=== PATIENT | female | born 1995 | race African-American/Black ===

== ENCOUNTER 2016-08-13 10:05 | Observation (INO) | payer MEDICAID ==
[2016-08-16] MEDS ORDERED: PREN-96 PO (12:53)
== END 2016-08-13 11:25 | disposition home or self-care (01) | DRG 566 ==
LOC: LDRP 10:05
PROVIDERS: ADMIT Specialist; ATTEND Specialist
DX: O41.03X0 Oligohydramnios, third trimester, not applicable or unspecified (principal); O48.0 Post-term pregnancy; Z3A.40 40 weeks gestation of pregnancy
CPT/HCPCS: 59025; 76818; 81002; G0378

== ENCOUNTER 2019-03-01 03:42 | Emergency (ER) | payer MEDICAID ==
[~2019-03-01] VITALS: Ht 162.6 cm; Wt 72.6 kg
[~2019-03-01 03:42] MED LIST: PREN-96 PO
[2019-03-01 05:11] LABS: Basophils # (auto) 0 uL; Eosinophils # (auto) 0 uL; Eosinophils % (auto) 0.2 % (0.0-7.0); Hemoglobin 10.6 g/dL (12.2-16.2); Lymphocytes # (auto) 0.8 uL; Neutrophils # (auto) 2.9 uL; Nucleated Red Blood Cells % 0.1 %; White Blood Cell 4.1 10^3/uL (4.4-10.8)
[2019-03-01 05:11] LABS: Urine Bacteria MANY /hpf (None Seen); Urine Blood Negative /uL (Negative); Urine Mucus FEW (None Seen); Urine Specific Gravity 1.026 (1.001-1.035); Urine WBC 44 /hpf (0 - 5)
[2019-03-01 05:13] LABS: Basophils % (auto) 0.3 % (0.0-2.0); Hematocrit 33.5 % (36.0-46.0); Mean Corpuscular Hemoglobin 23.3 pg (28.0-32.0); Mean Corpuscular Hgb Conc. 31.6 g/dL (32.0-36.0); Mean Corpuscular Volume 73.8 fL (80.0-100.0); Monocytes # (auto) 0.5 uL; Monocytes % (auto) 11.3 % (0.0-12.0); Neutrophils % (auto) 69.2 % (37.0-80.0); Platelet Count (auto) 228 10^3/uL (140-450); Red Blood Cells 4.53 10^6/uL (4.0-5.20)
[2019-03-01 05:30] LABS: Albumin 3.3 g/dL (3.4-5.0); Potassium 3.1 mmol/L (3.5-5.1)
[2019-03-01 05:33] LABS: BUN/Creatinine Ratio 8.8; Bilirubin, Total 0.3 mg/dL (0.2-1.0); Total Protein 7.4 g/dL (6.4-8.2)
[2019-03-01 06:18] LABS: INR 1.06 (0.9-1.15); Partial Thromboplastin Time 25.8 sec (23.64-32.05)
[2019-03-01] MEDS ORDERED: SODIUM CHLORIDE 0.9% 1,000 ML IV ONE (07:00)
[2019-03-01] MEDS ORDERED: cefTRIAXone 1GM/50ML D5W 50 ML IV ONE (07:00)
[2019-03-01 07:32] VITALS: BP 110/70
== END 2019-03-01 08:01 | disposition home or self-care (01) ==
LOC: ER 03:44
DX: N39.0 Urinary tract infection, site not specified (principal); R53.1 Weakness; R51 Headache; F12.10 Cannabis abuse, uncomplicated
CPT/HCPCS: 36415; 71045; 80053; 81001; 83735; 83880; 84443; 84484; 85025; 85610; 85730; 96365; 99284; J0696; J7030

== ENCOUNTER 2020-01-03 04:38 | Emergency (ER) | payer MEDICAID ==
[~2020-01-03] VITALS: Ht 167.6 cm; Wt 74.8 kg
[2020-01-03 04:55] VITALS: BP 102/70
[2020-01-03] MEDS ORDERED: ACETAMINOPHEN/CODEINE#3 (300/30mg) TAB PO ONE (05:15)
== END 2020-01-03 05:47 | disposition home or self-care (01) ==
LOC: ER 04:38
DX: H66.91 Otitis media, unspecified, right ear (principal); K02.9 Dental caries, unspecified

== ENCOUNTER 2020-04-11 19:37 | Emergency (ER) | payer MEDICAID ==
[~2020-04-11] VITALS: Ht 160 cm; Wt 86.2 kg
[2020-04-11 19:53] VITALS: BP 121/64
[2020-04-11] MEDS ORDERED: KETOROLAC TROMETH 60MG/2ML VIAL IM ONE (21:15)
== END 2020-04-11 22:11 | disposition home or self-care (01) ==
LOC: ER 19:37
DX: K02.9 Dental caries, unspecified (principal); H66.91 Otitis media, unspecified, right ear; Z79.899 Other long term (current) drug therapy
CPT/HCPCS: 96372; 99283; J1885

== ENCOUNTER 2022-06-06 09:28 | Emergency (ER) | payer MEDICAID ==
[~2022-06-06] VITALS: Ht 160 cm; Wt 98.6 kg
[2022-06-06 11:21] LABS: Urine Bacteria NONE SEEN /hpf (None Seen); Urine Blood 2+ /uL (Negative); Urine Mucus FEW (None Seen); Urine Specific Gravity 1.024 (1.001-1.035); Urine WBC 276 /hpf (0 - 5); Urine WBC Clumps PRESENT /hpf (None Seen)
[2022-06-06] MEDS ORDERED: IBUPROFEN 600 MG TAB PO ONE (13:30)
[2022-06-06 16:30] VITALS: BP 112/78
[2022-06-06] MEDS ORDERED: DOXY-286 PO (16:42)
[2022-06-06] MEDS ORDERED: MICO2CRE60 EX (16:42)
[2022-06-06] MEDS ORDERED: cefTRIAXone SOD 500 MG VL IM ONE (16:45)
[2022-06-06] MEDS ORDERED: AZITHROMYCIN 250 MG TAB PO ONE (16:45)
[2022-06-06] MEDS ORDERED: MICONAZOLE NITRATE 2 % VAGINAL CREAM 45 GM PV ONE (16:45)
[2022-06-06] MEDS ORDERED: cefTRIAXone W LIDOCAINE 500 MG IM IM ONE (16:45)
== END 2022-06-06 17:24 | disposition home or self-care (01) ==
LOC: ER 09:28
DX: N76.0 Acute vaginitis (principal); F12.10 Cannabis abuse, uncomplicated
CPT/HCPCS: 81001; 81025; 87070; 87077; 87210; 87491; 87591; 96372; 99283; J0696

== ENCOUNTER 2022-06-08 20:43 | Emergency (ER) | payer MEDICAID ==
[~2022-06-08] VITALS: Ht 160 cm; Wt 98.0 kg
[~2022-06-08 20:43] MED LIST changes: +DOXY-286 PO; +MICO2CRE60 EX
[2022-06-08] MEDS ORDERED: SODIUM CHLORIDE 0.9% 1,000 ML IV ONE (21:15)
[2022-06-08] MEDS ORDERED: KETOROLAC TROMETH 30 MG/ML 1ML VIAL IV ONE (21:15)
[2022-06-08] MEDS ORDERED: ONDANSETRON ODT 4 MG TAB PO ONE (21:15)
[2022-06-09] MEDS ORDERED: KETOROLAC TROMETH 30 MG/ML 1ML VIAL IM ONE (00:15)
[2022-06-09] MEDS ORDERED: FLUC150T38 PO (00:41)
[2022-06-09 01:02] VITALS: BP 97/59
== END 2022-06-09 02:01 | disposition still patient (30) ==
LOC: ER 20:43
DX: R10.2 Pelvic and perineal pain (principal); R30.0 Dysuria; Z79.899 Other long term (current) drug therapy; Z79.2 Long term (current) use of antibiotics
CPT/HCPCS: 87070; 96360; 96372; 99283; J1885; J7030; Q0162